=== PATIENT | female | born 1940 | race American Indian/Alaskan Native ===

== ENCOUNTER 2021-05-04 03:46 | Observation (INO) | payer MEDICARE ==
[2021-05-04] MEDS ORDERED: SODIUM CHLORIDE 0.9% 1000 ML 1,000 ML IV ONE (04:27)
--- NOTE | 2021-05-04 04:29 | Emergency Department Report ---
<RUTH LOREDO - Last Filed: 05/04/21 05:32> ED General Adult HPI - General Chief complaint: Syncope Stated complaint: PASSED OUT PUI?: No Time Seen by Provider: 05/04/21 04:15 Source: patient, EMS ( EMS documentation not available at time of chart dictation ), RN notes reviewed, old records reviewed Mode of arrival: Stretcher Limitations: Physical Limitation - History of Present Illness Initial comments: The patient is an 81-year-old gentleman. His primary care doctor is with [facility] Past medical history includes stroke, pulmonary nodule, near syncope, autonomic dysfunction, history of DVT, not currently on anticoagulation, as he reports that he was cleared to discontinue anticoagulation. Patient presents to the ER today with a complaint of loss of consciousness. Patient states that he was using the bathroom, perhaps urinating or defecating, he is not certain, he believes that he passed out. Prior to the event, denies headache, neck pain, chest pain, abdominal pain, shortness of breath. Denies hematemesis and bright red blood per rectum. Patient is not quite sure how he passed out. He states that he was using the commode, and "the next thing I knew, I was on the floor." Patient lives at home with family. He complains of left-sided hip pain. He denies neck pain. He does not believe he started any new medications recently, but he is not certain. -: Sudden Consistency: now resolved Improves with: none Worsens with: other (Associated with urination) - Related Data Home Medications Medication Instructions Recorded Confirmed Last Taken Ketotifen Fumarate [Allergy Eye 1 drop OU DAILY 01/17/18 01/17/18 01/17/18 Drops] Tamsulosin [Flomax] 0.4 mg PO QDAY 01/17/18 01/17/18 01/17/18 Previous Rx's Medication Instructions Recorded Last Taken Type Aspirin [Adult Low Dose Aspirin EC] 81 mg PO DAILY #30 tablet. 01/20/18 Unknown Rx Cholecalciferol (Vitamin D3) 2,000 unit PO QDAY #30 capsule 01/20/18 Unknown Rx [Vitamin D3] Clopidogrel Bisulfate [Plavix] 75 mg PO QDAY #30 tablet 01/20/18 Unknown Rx Cyanocobalamin (Vitamin B-12) 1,000 mcg PO DAILY #30 tablet 01/20/18 Unknown Rx [Vitamin B-12] Gabapentin 300 mg PO DAILY #30 capsule 01/20/18 Unknown Rx Loratadine (Nf) [Claritin (Nf)] 10 mg PO QDAY tablet 01/20/18 Unknown Rx Allergies Allergy/AdvReac Type Severity Reaction Status Date / Time No Known Allergies Allergy Unverified 01/17/18 18:35 ED Review of Systems Constitutional: malaise, weakness. denies: fever Eyes: denies: eye discharge Respiratory: denies: shortness of breath Cardiovascular: syncope. denies: chest pain Gastrointestinal: denies: abdominal pain Genitourinary: denies: dysuria Musculoskeletal: back pain, arthralgia, myalgia Neurological: weakness Hematological/Lymphatic: easy bleeding ED Past Medical Hx - Past Medical History Hx Hypertension: Yes Hx CVA: Yes Additional medical history: Pt is poor historian - Surgical History Hx Cholecystectomy: Yes Additional Surgical History: Pt is a poor historian: stomach ulcers - Social History Smoking Status: Unknown if ever smoked Substance Use Type: None - Medications Home Medications: Home Medications Medication Instructions Recorded Confirmed Last Taken Type Ketotifen Fumarate [Allergy Eye 1 drop OU DAILY 01/17/18 01/17/18 01/17/18 History Drops] Tamsulosin [Flomax] 0.4 mg PO QDAY 01/17/18 01/17/18 01/17/18 History Aspirin [Adult Low Dose Aspirin EC] 81 mg PO DAILY #30 tablet.dr 01/20/18 Unknown Rx Cholecalciferol (Vitamin D3) 2,000 unit PO QDAY #30 capsule 01/20/18 Unknown Rx [Vitamin D3] Clopidogrel Bisulfate [Plavix] 75 mg PO QDAY #30 tablet 01/20/18 Unknown Rx Cyanocobalamin (Vitamin B-12) 1,000 mcg PO DAILY #30 tablet 01/20/18 Unknown Rx [Vitamin B-12] Gabapentin 300 mg PO DAILY #30 capsule 01/20/18 Unknown Rx Loratadine (Nf) [Claritin (Nf)] 10 mg PO QDAY tablet 01/20/18 Unknown Rx ED Physical Exam - General Limitations: Physical Limitation General appearance: alert, in no apparent distress - Head Head exam: Present: atraumatic, normocephalic - Eye Eye exam: Present: normal appearance, PERRL, EOMI, other (Bilateral arcus senilis noted). Absent: nystagmus - ENT ENT exam: Present: normal exam, normal orophraynx, mucous membranes moist, no rmal external ear exam - Neck Neck exam: Present: normal inspection, full ROM. Absent: tenderness, meningismus - Respiratory Respiratory exam: Present: normal lung sounds bilaterally. Absent: respiratory distress, wheezes, rales, rhonchi, stridor, decreased breath sounds - Cardiovascular Cardiovascular Exam: Present: regular rate, normal rhythm, normal heart sounds. Absent: bradycardia, tachycardia, irregular rhythm, systolic murmur, diastolic murmur, rubs, gallop - GI/Abdominal GI/Abdominal exam: Present: soft. Absent: distended, tenderness, guarding, rebound, rigid, pulsatile mass - Rectal Rectal exam: Present: normal inspection, normal rectal tone, heme (-) stool, other (Chaperoned by Vivian Blanton, Marketing Analyst). Absent: heme (+) stool, black stool, bloody stool, fecal impaction - Extremities Exam Extremities exam: Present: normal inspection, full ROM, tenderness (There is left-sided hip tenderness. The pelvis is stable. There is pain with passive and active range of motion of the left hip and pelvis.), pedal edema (1+ edema), other (2+ pulses noted in the bilateral upper and lower extremities. Upper extremities have no longer any tenderness. Right lower extremities have normal bony tenderness. Left hip is point tender.). Absent: calf tenderness - Back Exam Back exam: Present: normal inspection, full ROM. Absent: tenderness, CVA tenderness (R), CVA tenderness (L), paraspinal tenderness, vertebral tenderness - Neurological Exam Neurological exam: Present: alert, oriented X3, other (No facial droop. Tongue midline. Extraocular movements intact bilaterally. Facial sensation intact to light touch in V1, V2, V3 distribution bilaterally. 5 and a 5 strength in 4 extremities. Sensation intact to light touch in 4 extremities.). Absent: motor sensory deficit - Psychiatric Psychiatric exam: Present: anxious - Skin Skin exam: Present: warm, dry, intact, normal color. Absent: rash ED Course - Reevaluation(s) Reevaluation #1: 05/04/21 05:11 Differential diagnosis, including but not limited to: Orthostasis, vagal event, structural cardiac disease, pulmonary embolism, pneumonia, urinary tract infection, anemia, electrolyte derangement Assessment and plan: 81-year-old gentleman, who during my history and physical, saturating at 93% on room air, blood pressure 96 mmHg systolic, with episode of syncope/loss of consciousness, in the context of urination or defecation. Patient repeat blood pressure is now 106 systolic. Administer supplemental oxygen, obtain appropriate laboratory studies, noncontrast CT scan of the brain, and CT angiogram of the chest, given history of syncope, hypoxia, hypotension, and history of DVT. Administer IV fluids, obtain x-ray of the pelvis and left hip. Treat the patient's pain with acetaminophen. Obtain urinalysis. Reassess after initial data points. Anticipate admission to the medical service. However, I suspect that this is most likely a vagal event, associated with micturition. Given advanced age and multiple medical issues and vascular risk factors, patient moderate risk for major adverse cardiac event as per heart score, and [facility] syncope rule. 05/04/21 05:32 Care will be transferred to the oncoming ER physician, to follow-up on CT scan of the brain, CT scan of the chest, x-ray of the hip and pelvis, and arrange admission to the medical service. ED Medical Decision Making - Lab Data Result diagrams: 05/04/21 04:34 05/04/21 04:34 Vital Signs 05/04/21 04:10 Temperature 97.9 F Pulse Rate 77 Respiratory 13 Rate Blood Pressure 105/63 [Left] O2 Sat by Pulse 92 Oximetry Lab Results 05/04/21 Range/Units 04:34 WBC 7.5 (4.5-11.0) K/mm3 RBC 3.99 (3.65-5.03) M/mm3 Hgb 11.1 (10.1-14.3) gm/dl Hct 34.0 (30.3-42.9) % MCV 85 (79-97) fl MCH 28 (28-32) pg MCHC 33 (30-34) % RDW 16.4 H (13.2-15.2) % Plt Count 291 (140-440) K/mm3 Lab Results 05/04/21 05/04/21 05/04/21 Range/Units 04:34 04:34 04:34 WBC 7.5 (4.5-11.0) K/mm3 RBC 3.99 (3.65-5.03) M/mm3 Hgb 11.1 (10.1-14.3) gm/dl Hct 34.0 (30.3-42.9) % MCV 85 (79-97) fl MCH 28 (28-32) pg MCHC 33 (30-34) % RDW 16.4 H (13.2-15.2) % Plt Count 291 (140-440) K/mm3 Lymph % (Auto) 8.5 L (13.4-35.0) % Burt % (Auto) 5.7 (0.0-7.3) % Eos % (Auto) 1.6 (0.0-4.3) % Baso % (Auto) 0.4 (0.0-1.8) % Lymph # (Auto) 0.6 L (1.2-5.4) K/mm3 Burt # (Auto) 0.4 (0.0-0.8) K/mm3 Eos # (Auto) 0.1 (0.0-0.4) K/mm3 Baso # (Auto) 0.0 (0.0-0.1) K/mm3 Seg Neutrophils % 83.8 H (40.0-70.0) % Seg Neutrophils # 6.1 (1.8-7.7) K/mm3 PT 14.4 (12.2-14.9) Sec. INR 1.01 (0.87-1.13) D-Dimer 876.04 H (0-234) ng/mlDDU Sodium 136 L (137-145) mmol/L Potassium 4.1 (3.6-5.0) mmol/L Chloride 100.6 (98-107) mmol/L Carbon Dioxide 23 (22-30) mmol/L Anion Gap 17 mmol/L BUN 10 (7-17) mg/dL Creatinine 1.0 (0.6-1.2) mg/dL Estimated GFR > 60 ml/min BUN/Creatinine Ratio 10 % Glucose 116 H (65-100) mg/dL Calcium 8.8 (8.4-10.2) mg/dL Magnesium 1.90 (1.7-2.3) mg/dL Total Bilirubin 0.30 (0.1-1.2) mg/dL AST 12 (5-40) units/L ALT 13 (7-56) units/L Alkaline Phosphatase 67 (35-129) units/L Total Creatine Kinase 51 (30-135) units/L Troponin T < 0.010 (0.00-0.029) ng/mL Total Protein 6.6 (6.3-8.2) g/dL Albumin 3.6 L (3.9-5) g/dL Albumin/Globulin Ratio 1.2 % - EKG Data -: EKG Interpreted by Mt EKG shows normal: sinus rhythm Rate: normal - EKG Data 05/04/21 05:10 EKG #1 is interpreted at 04: 31 Sinus rhythm, 76 bpm. Normal axis, normal intervals, minimal motion artifact, t his EKG is not a STEMI, the EKG is unchanged from prior EKG from 01/20/2018 - Radiology Data Radiology results: pending ED Disposition Clinical Impression: Syncope, Left hip pain Disposition: ADMITTED INPATIENT Is pt being admited?: Yes Does the pt Need Aspirin: No Condition: Good Instructions: Syncope (ED) Referrals: PRIMARY CARE, [Primary Care Provider] - 3-5 Days <VASU GARCIA - Last Filed: 05/04/21 09:47> ED Review of Systems ROS: Stated complaint: PASSED OUT Other details as noted in HPI ED Course Vital Signs 05/04/21 05/04/21 05/04/21 04:10 04:14 04:15 Temperature 97.9 F Pulse Rate 77 77 82 Respiratory 13 12 14 Rate Blood Pressure 96/63 Blood Pressure 105/63 [Left] O2 Sat by Pulse 92 93 92 Oximetry 05/04/21 05/04/21 05/04/21 04:30 04:45 05:00 Temperature Pulse Rate 76 79 75 Respiratory 12 13 14 Rate Blood Pressure 96/63 113/64 113/64 Blood Pressure [Left] O2 Sat by Pulse 94 92 Oximetry 05/04/21 05/04/21 05/04/21 05:15 06:23 06:30 Temperature Pulse Rate 76 76 60 Respiratory 12 12 13 Rate Blood Pressure 111/58 95/58 119/56 Blood Pressure [Left] O2 Sat by Pulse 97 96 95 Oximetry 05/04/21 05/04/21 06:45 07:15 Temperature Pulse Rate 65 70 Respiratory 16 15 Rate Blood Pressure 111/51 113/56 Blood Pressure [Left] O2 Sat by Pulse 96 96 Oximetry ED Medical Decision Making - Lab Data Result diagrams: 05/04/21 04:34 05/04/21 04:34 - Medical Decision Making Imaging studies reviewed. No acute fracture, acute intracranial abnormality, or pulmonary embolism/infiltrate identified based on imaging studies. Incidental findings noted. Case discussed with hospitalist Dr. Lawson for admission to Dr. Bennett service Critical care attestation.: If time is entered above; I have spent that time in minutes in the direct care of this critically ill patient, excluding procedure time. ED Disposition Time of Disposition: 09:46 (Dr. Bennett/hospitalist)
[2021-05-04] MEDS ORDERED: ACETAMINOPHEN 325 MG TAB PO ONE (05:03)
[2021-05-04 05:08] LABS: Hemoglobin 11.1 gm/dl (10.1-14.3); Mean Corpuscular HGB Conc 33 % (30-34); Mean Corpuscular Volume 85 fl (79-97); Platelet Count 291 K/mm3 (140-440); Red Blood Count 3.99 M/mm3 (3.65-5.03); Red Cell Distribution Width 16.4 % (13.2-15.2)
[2021-05-04 05:13] LABS: Alanine Aminotransferase 13 units/L (7-56); Albumin 3.6 g/dL (3.9-5); BUN/Creatinine Ratio 10; Blood Urea Nitrogen 10 mg/dL (7-17); Calcium 8.8 mg/dL (8.4-10.2); Hemolysis Index 2
[2021-05-04 05:17] LABS: Basophils % (Auto) 0.4 % (0.0-1.8); Eosinophils # (Auto) 0.1 K/mm3 (0.0-0.4); Eosinophils % (Auto) 1.6 % (0.0-4.3); Lymphocytes # (Auto) 0.6 K/mm3 (1.2-5.4); Lymphocytes % (Auto) 8.5 % (13.4-35.0); Monocytes # (Auto) 0.4 K/mm3 (0.0-0.8); Monocytes % (Auto) 5.7 % (0.0-7.3)
[2021-05-04 05:19] LABS: INR 1.01 (0.87-1.13)
--- NOTE | 2021-05-04 06:14 | Cat Scan Report ---
CT head without contrast INDICATION : Syncope. TECHNIQUE: Axial imaging performed from the skull apex through the skull base without the use of con trast. All CT scans at this location are performed using CT dose reduction for ALARA by means of aut omated exposure control. COMPARISON: 01/17/2018. FINDINGS: Parenchyma: Chronic changes of atrophy and small vessel ischemia. No mass, stroke or hemorrhage. Ventricles: Ventricles are normal in size and appear symmetric. Soft tissues: Soft tissues including the orbits appear normal. Bones: No acute osseous abnormality. Sinuses: Mucous retention cyst left maxillary sinus. IMPRESSION: Chronic changes of atrophy and small vessel ischemia. Signer Name: González Forman MD Signed: 05/04/2021 6:10 AM Workstation Name: [id number]
--- NOTE | 2021-05-04 06:22 | Cat Scan Report ---
CTA CHEST WITH CONTRAST INDICATION / CLINICAL INFORMATION: Syncope, hypoxia, history of DVT. TECHNIQUE: Axial CT images were obtained through the chest after injection of Omnipaque 350, 100 cc I V contrast. 3 plane MIP and/or 3D reconstructions were produced. All CT scans at this location are pe rformed using CT dose reduction for ALARA by means of automated exposure control. COMPARISON: None available. FINDINGS: PULMONARY ARTERIES: No pulmonary emboli. THORACIC AORTA: No significant abnormality. HEART: No significant abnormality. CORONARY ARTERY CALCIFICATION: Mild. MEDIASTINUM / DENISE: Prominent hilar nodes are present with the largest on the left measuring 1 cm in the greatest short axis axis dimension. The largest on the right measures 1.1 cm in the greatest shor t axis dimension. PLEURA: No pleural effusion. No pneumothorax. LUNGS: Mild/moderate emphysema. 6 mm noncalcified nodule right middle lobe laterally (series 2, image 87). A small perifissural nodule is also seen at the right major fissure. Calcified granuloma right upper lobe. ADDITIONAL FINDINGS: None. UPPER ABDOMEN: No acute findings. SKELETAL STRUCTURES: No significant osseous abnormality. IMPRESSION: 1. No CT evidence for pulmonary embolism. 2. Negative for pneumonia. 3. Mild hilar adenopathy. 4. Incidental 6 mm pulmonary nodule. 5. Mild/moderate emphysema. INCIDENTAL PULMONARY NODULE RECOMMENDATION RECOMMENDATION: Solid Nodule size 6-8 mm -- Single - Low Risk Patient: CT at 6-12 months, then consider CT at 18-24 months - High Risk Patient: CT at 6-12 months, then CT at 18-24 months Note These recommendations do not apply to lung cancer screening, patients with immunosuppression, o r patients with known primary cancer. Note Newly detected indeterminate nodule in persons 35 years of age or older. Persons under the age of 35 should not receive follow-up unless there is a known primary cancer. Note Perifissural Nodule is a fissure-attached/subpleural, homogeneous, solid nodule that has smooth margins and an oval, lentiform, or triangular shape. They represent about 20% of nodules detected in lung cancer screening, are invariably benign, and do not require follow-up. Nodules 10 mm or larger (or those with suspicious features) will continue to be managed based on the size criteria. Low Risk Patient -- minimal or absent history of smoking and of other known risk factors. High Risk Patient -- history of smoking or of other known risk factors. Nodule dimensions are average of long and short axes, rounded to the nearest millimeter. Based on 2017 Fleischner Society Guidelines found in Radiology 2017 284:228-243. https://doi.org/10.1148/radiol.7794105863 https://www.ncbi.nlm.nih.gov/pmc/articles/XGA5007813/ Signer Name: González Forman MD Signed: 05/04/2021 6:18 AM Workstation Name: [id number]
--- NOTE | 2021-05-04 07:19 | XRay Report ---
LEFT HIP 3 VIEWS INDICATION / CLINICAL INFORMATION: left hip and leg pain COMPARISON: None available. FINDINGS: BONES / JOINT(S): No acute fracture or subluxation. All symmetric DJD at the hips. SOFT TISSUES: Atherosclerotic vascular calcification. ADDITIONAL FINDINGS: None. Signer Name: González Forman MD Signed: 05/04/2021 7:15 AM Workstation Name: [id number]
--- NOTE | 2021-05-04 07:19 | XRay Report ---
CHEST 1 VIEW 05/04/2021 6:05 AM INDICATION / CLINICAL INFORMATION: Syncope. COMPARISON: None available. FINDINGS: SUPPORT DEVICES: None. HEART / MEDIASTINUM: No significant abnormality. LUNGS / PLEURA: No significant pulmonary or pleural abnormality. No pneumothorax. ADDITIONAL FINDINGS: No significant additional findings. IMPRESSION: No acute abnormality. Signer Name: González Forman MD Signed: 05/04/2021 7:15 AM Workstation Name: [id number]
--- NOTE | 2021-05-04 07:33 | XRay Report ---
Pelvis, single view history: Left hip and leg pain COMPARISON: None FINDINGS: No acute fracture. No hip dislocation. There is osteoarthritis of the hips. SI joints and p ubic symphysis are intact. Lower lumbar spondylosis is partially imaged. IMPRESSION: No acute process. Signer Name: Nick Berrios MD Signed: 05/04/2021 7:29 AM Workstation Name: [id number]
--- NOTE | 2021-05-04 14:04 | History and Physical Report ---
History of Present Illness Date of examination: 05/04/21 Date of admission: 05/04/21 09:47 History of present illness: The patient is an 81-year-old gentleman. His primary care doctor is with [facility] Past medical history includes stroke, pulmonary nodule, near syncope, autonomic dysfunction, history of DVT, not currently on anticoagulation, as he reports that he was cleared to discontinue anticoagulation. Patient presents to the ER today with a complaint of loss of consciousness. Pat elena states that he was using the bathroom, perhaps urinating or defecating, he is not certain, he believes that he passed out. Prior to the event, denies headache, neck pain, chest pain, abdominal pain, shortness of breath. Denies hematemesis and bright red blood per rectum. Patient is not quite sure how he passed out. He states that he was using the commode, and "the next thing I knew, I was on the floor." Patient lives at home with family. He complains of left-sided hip pain. He denies neck pain. He does not believe he started any new medications recently, but he is not certain. Medications and Allergies Allergies Allergy/AdvReac Type Severity Reaction Status Date / Time No Known Allergies Allergy Verified 05/05/21 10:35 Home Medications Medication Instructions Recorded Confirmed Last Taken Type Tamsulosin [Flomax] 0.4 mg PO QDAY 01/17/18 05/05/21 05/03/21 History Aspirin [Adult Low Dose Aspirin EC] 81 mg PO DAILY #30 tablet. 01/20/18 05/05/21 05/03/21 Rx Clopidogrel Bisulfate [Plavix] 75 mg PO QDAY #30 tablet 01/20/18 05/05/21 05/03/21 Rx Cyanocobalamin (Vitamin B-12) 1,000 mcg PO DAILY #30 tablet 01/20/18 05/05/21 05/03/21 Rx [Vitamin B-12] Atorvastatin [Lipitor Tab] 80 mg PO QHS 05/05/21 05/05/21 05/03/21 History Cholecalciferol (Vitamin D3) 4,000 unit PO QDAY 05/05/21 05/05/21 05/03/21 History [Vitamin D3 2,000 UNIT CAP] Dextran 70/Hypromellose 1 drop OU PRN PRN 05/05/21 05/05/21 Unknown History [Artificial Tears] Gabapentin 600 mg PO QAM 05/05/21 05/05/21 05/03/21 History traMADoL [Ultram] 50 mg PO PRN PRN 05/05/21 05/05/21 05/03/21 History Exam - Constitutional Vitals: Temp Pulse Resp BP Pulse Ox 97.9 F 77 15 107/62 94 05/04/21 04:10 05/04/21 13:00 05/04/21 13:00 05/04/21 13:00 05/04/21 13:00 HEART Score - HEART Score Troponin: Troponin T < 0.010 ng/mL (0.00-0.029) 05/04/21 04:34 Results - Labs CBC & Chem 7: 05/04/21 04:34 05/04/21 04:34 Labs: Abnormal lab results 05/04/21 05/04/21 05/04/21 Range/Units 04:34 04:34 04:34 RDW 16.4 H (13.2-15.2) % Lymph % (Auto) 8.5 L (13.4-35.0) % Lymph # (Auto) 0.6 L (1.2-5.4) K/mm3 Seg Neutrophils % 83.8 H (40.0-70.0) % D-Dimer 876.04 H (0-234) ng/mlDDU Sodium 136 L (137-145) mmol/L Glucose 116 H (65-100) mg/dL Albumin 3.6 L (3.9-5) g/dL Assessment and Plan --Syncope and collapse --h/o CVA --h/o DVT not on AC --HTN
[2021-05-04] MEDS: ASPIRIN EC 81 MG TAB PO SCH (15:32)
[2021-05-04] MEDS: traMADol 50 MG TAB PO PRN (15:32)
[2021-05-04] MEDS: ENOXAPARIN 40 MG/0.4 ML INJ SUB-Q SCH (23:00)
[2021-05-05] MEDS: traMADol 50 MG TAB PO PRN (08:12)
[2021-05-05] MEDS: TAMSULOSIN 0.4 MG CAP PO SCH (09:14)
[2021-05-05] MEDS: CETIRIZINE 10 MG TAB PO SCH (09:14)
[2021-05-05] MEDS: CHOLECALCIFEROL (VIT D3) 1000 UNIT (25 mcg) TAB PO SCH (09:14)
[2021-05-05] MEDS: ASPIRIN EC 81 MG TAB PO SCH (09:14)
[2021-05-05] MEDS: CLOPIDOGREL 75 MG TAB PO SCH (09:14)
[2021-05-05] MEDS: CYANOCOBALAMIN (VIT B-12) 1000 MCG TAB PO SCH (09:14)
[2021-05-05] MEDS: GABAPENTIN 300 MG CAP PO SCH (09:15)
[2021-05-05 09:40] LABS: Bilirubin,Urine NEG (Negative); Blood,Urine SM (Negative); Color,Urine Yellow (Yellow); Protein,Urine <15 mg/dL mg/dL (Negative); Urobilinogen,Urine < 2.0 mg/dL (<2.0)
[2021-05-05] MEDS ORDERED: CHOLECALCIFEROL 2000 UNIT PO SCH (10:00)
[2021-05-05] MEDS ORDERED: NON-FORMULARY EACH (Loratadine (Nf) 10 MG Tablet) PO SCH (10:00)
[2021-05-05] MEDS ORDERED: [UNRECOGNIZED DRUG - REMARK] OU SCH (10:00)
--- NOTE | 2021-05-05 13:52 | Discharge Summary ---
Providers - Providers Date of Admission: 05/04/21 09:47 Date of discharge: 05/05/21 Attending physician: LUKASZ ZIMMERMAN 05/05/21 07:27 Physical Therapy Evaluation and Treat [CONS] Urgent Comment: Reason For Exam: debility 05/05/21 07:28 Occupational Therapy Evaluate and Treat [CONS] Urgent Comment: Reason For Exam: debility 05/05/21 09:19 Consult to Physician [CONS] Routine Comment: Consulting Provider: ERNST DELUNA Physician Instructions: Reason For Exam: syncope Primary care physician: COMPUTATOR Hospitalization Condition: Good Exam - Constitutional Vitals: Temp Pulse Resp BP Pulse Ox 97.9 F 77 22 102/52 96 05/04/21 04:10 05/05/21 07:52 05/05/21 07:50 05/05/21 05:00 05/05/21 10:28 Plan Activity: fall precautions Weight Bearing Status: Non-Weight Bearing Diet: low fat, low salt Durable Medical Equipment Needed Upon Discharge: Walker-Rolling Follow up with: GLENDY PRINCE MD [Primary Care Provider] - 3-5 Days ERNST DELUNA MD [Staff Physician] - 7 Days
--- NOTE | 2021-05-05 17:50 | Consultation ---
History of Present Illness Consult date: 05/05/21 Consult reason: syncope History of present illness: Patient is an 81-year-old man with a history of hypertension, no prior cardiac h istory he presented to the hospital following a syncopal episode which occurred in the middle of the night. He states that he had gotten up to use the bathroom and on his way to the bathroom felt lightheaded, diaphoretic and suffered a brief syncope. There was no chest pain, no palpitations, no shortness of breath, and no seizure activity was reported. Patient's reports that a similar episode 5 years ago associated with a bowel movement, did not result in landry syncope, and had not recurred until the current event. Work-up in the hospital so far, EKG is normal sinus rhythm, normal ECG. Chest x-ray was normal-sized cardiac silhouette and clear lungs. A CTA of the chest was negative for pulmonary embolism. 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 Today, he underwent an echocardiogram that showed well-preserved left ventricular systolic function, ejection fraction 55%. Patient is currently in the telemetry unit, comfortable in no acute distress, looks and feels well with no cardiac complaints. Past History Past Medical History: hypertension Medications and Allergies Allergies Allergy/AdvReac Type Severity Reaction Status Date / Time No Known Allergies Allergy Verified 05/05/21 10:35 Home Medications Medication Instructions Recorded Confirmed Last Taken Type Tamsulosin [Flomax] 0.4 mg PO QDAY 01/17/18 05/05/21 05/03/21 History Aspirin [Adult Low Dose Aspirin EC] 81 mg PO DAILY #30 tablet. 01/20/18 05/05/21 05/03/21 Rx Clopidogrel Bisulfate [Plavix] 75 mg PO QDAY #30 tablet 01/20/18 05/05/21 05/03/21 Rx Cyanocobalamin (Vitamin B-12) 1,000 mcg PO DAILY #30 tablet 01/20/18 05/05/21 05/03/21 Rx [Vitamin B-12] Atorvastatin [Lipitor] 80 mg PO QHS 05/05/21 05/05/21 05/03/21 History Cholecalciferol (Vitamin D3) 4,000 unit PO QDAY 05/05/21 05/05/21 05/03/21 History [Vitamin D3 2,000 UNIT CAP] Dextran 70/Hypromellose 1 drop OU PRN PRN 05/05/21 05/05/21 Unknown History [Artificial Tears] Gabapentin 600 mg PO QAM 05/05/21 05/05/21 05/03/21 History traMADoL [Ultram 50 MG tab] 50 mg PO PRN PRN 05/05/21 05/05/21 05/03/21 History Active Meds: Active Medications Aspirin (Aspirin Ec 81 Mg Tab) 81 mg PO DAILY [facility] Last Admin: 05/05/21 09:14 Dose: 81 mg Documented by: Cetirizine HCl (Cetirizine 10 Mg Tab) 10 mg PO DAILY [facility] Last Admin: 05/05/21 09:14 Dose: 10 mg Documented by: Cholecalciferol (Cholecalciferol (Vit D3) 1000 Unit (25 Mcg) Tab) 2,000 unit PO QDAY [facility] Last Admin: 05/05/21 09:14 Dose: 2,000 unit Documented by: Clopidogrel Bisulfate (Clopidogrel 75 Mg Tab) 75 mg PO QDAY [facility] Last Admin: 05/05/21 09:14 Dose: 75 mg Documented by: Cyanocobalamin (Cyanocobalamin (Vit B-12) 1000 Mcg Tab) 1,000 mcg PO DAILY [facility] Last Admin: 05/05/21 09:14 Dose: 1,000 mcg Documented by: Enoxaparin Sodium (Enoxaparin 40 Mg/0.4 Ml Inj) 40 mg SUB-Q QDAY@2200 LISETH; Protocol Last Admin: 05/04/21 23:00 Dose: Not Given Documented by: Gabapentin (Gabapentin 300 Mg Cap) 300 mg PO DAILY [facility] Last Admin: 05/05/21 09:15 Dose: 300 mg Documented by: Tamsulosin HCl (Tamsulosin 0.4 Mg Cap) 0.4 mg PO QDAY [facility] Last Admin: 05/05/21 09:14 Dose: 0.4 mg Documented by: Tramadol HCl (Tramadol 50 Mg Tab) 50 mg PO Q8H PRN PRN Reason: Pain, Moderate (4-6) Last Admin: 05/05/21 08:12 Dose: 50 mg Documented by: Review of Systems Cardiovascular: syncope, lightheadedness, no chest pain, no orthopnea, no palpitations, no rapid/irregular heart beat, no edema, no shortness of breath Physical Examination Vital Signs Temp Pulse Resp BP Pulse Ox 97.9 F 77 13 105/63 92 05/04/21 04:10 05/04/21 04:10 05/04/21 04:10 05/04/21 04:10 05/04/21 04:10 General appearance: no acute distress HEENT: Positive: PERRL Neck: Positive: neck supple Cardiac: Positive: Reg Rate and Rhythm Lungs: Positive: clear to auscultation Neuro: Positive: Grossly Intact Abdomen: Positive: Soft Female genitourinary: deferred Skin: Positive: Clear Extremities: Absent: edema Results 05/04/21 04:34 05/04/21 04:34 EKG interpretations - Telemetry EKG Rhythm: Sinus Rhythm Assessment and Plan - Patient Problems (1) Syncope Current Visit: Yes Status: Acute Plan to address problem: Patient's description of his brief syncope appears to suggest a vasovagal syncope. Extensive work-up so far as outlined for neurogenic and cardiogenic syncope have been negative. We will order a predischarge Lexiscan thallium stress test for tomorrow morning.
[2021-05-05] MEDS: ENOXAPARIN 40 MG/0.4 ML INJ SUB-Q SCH (21:29)
--- NOTE | 2021-05-06 02:58 | Progress Note ---
Assessment and Plan Patient is an 81-year-old man with a history of hypertension, no prior cardiac history he presented to the hospital following a syncopal episode which occurred in the middle of the night. He states that he had gotten up to use the bathroom and on his way to the bathroom felt lightheaded, diaphoretic and suffered a brief syncope. Work-up in the hospital so far, EKG is normal , Chest x-ray was normal-sized cardiac silhouette and clear lungs. A CTA of the chest was negative for pulmonary embolism. 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 2d echo showed ejection fraction 55%. A/P --Syncope and collapse, likely vasovagal pending stress test --h/o CVA, continue aspirin, plavix and lipitor --h/o DVT not on AC --HTN, BP stable --HLD, on statin --BPH, on flomax --Elevated D-dimer, CTA negative Continue to monitor on telemetry, ordered for orthostatic vitals Follow PT recommendation, cardiology recommended stress test in the morning Continue home meds with aspirin Plavix and statin DVT prophylaxis with SCD and Lovenox If orthostatic vitals and stress test result is negative patient should be discharged home tomorrow with outpatient PT OT Subjective Date of service: 05/05/21 Interval history: Patient seen and examined. Medical records and medication list reviewed. No acute event overnight noted by the RN. Patient denies any chest pain or difficulty breathing. Patient is tolerating diet. Discussed plan of care at bedside with patient. Objective - Exam Narrative Exam: GENERAL: well-developed and well-nourished elderly -Dutch male lying on bed appeared to be in no discomfort. HEENT: Normocephalic. Atraumatic. No conjunctival congestion or icterus. Patient has moist mucous membranes. NECK: Supple. Trachea midline. CHEST/LUNGS: Clear to auscultated bilaterally, breathing nonlabored. No wheezes crackles or rhonchi. HEART/CARDIOVASCULAR: Regular in rate and rhythm. S1 and S2 positive. ABDOMEN: Abdomen is soft, nontender. Patient has normal bowel sounds. SKIN: There is no rash. Warm and dry. NEURO: No focal motor deficit. Follows command. MUSCULOSKELETAL: No joint effusion or tenderness. EXTRIMITY: No edema, no cyanosis or clubbing. PSYCH: Cooperative. - Constitutional Vitals: Vital Signs - 12hr 05/05/21 19:00 Respiratory 22 Rate O2 Sat by Pulse 96 Oximetry - Labs CBC & Chem 7: 05/04/21 04:34 05/04/21 04:34 HEART Score - HEART Score Troponin: Troponin T < 0.010 ng/mL (0.00-0.029) 05/04/21 04:34
[2021-05-06] MEDS ORDERED: SODIUM CHLORIDE 0.9% 1000 ML 1,000 ML IV SCH (03:15)
[2021-05-06 06:34] LABS: BUN/Creatinine Ratio 13; Blood Urea Nitrogen 10 mg/dL (7-17); Calcium 8.5 mg/dL (8.4-10.2); Hemolysis Index 5
[2021-05-06] MEDS ORDERED: REGADENOSON 0.4 MG/5 ML INJ IV ONE (08:56)
--- NOTE | 2021-05-06 10:24 | Event Note ---
Date: 05/06/21 Patient completed a Lexiscan thallium stress test, no complications. Myocardial perfusion test results are pending.
--- NOTE | 2021-05-06 11:25 | Electrocardiograph Report ---
[facility] Test Date: 2021-05-04 Test Time: 04:31:37 Pat Name: SINDHU MELO Department: Room: A456 Gender: F Project Surveyor: INGA : 1940 Requested By: RUTH LOREDO Order Number: [id number] Reading MD: Jenna Rowan Measurements Intervals [place] Rate: 76 P: 67 NH: 180 QRS: 49 QRSD: 94 T: 61 QT: 390 QTc: 438 Interpretive Statements Sinus rhythm Normal ECG No previous ECG available for comparison Electronically Signed On 05-06-2021 11:25:26 EST by Jenna Rowan
--- NOTE | 2021-05-06 11:41 | Nuclear Medicine Report ---
APPROVED REPORT Exam: Nuclear Stress Test Indication: Chest pain [facility] #: [facility] Ht: 5 ft 9 in Wt: 185 lbs BSA: 2.00 m2 BMI: 27.31 Rhythm: NSR Stress Test Details Stress Test: Pharmacologic stress testing performed using 0.4 mg of regadenoson per 5 mL given IV over 10 seconds. Reason for pharmacologic stress test: physical limitation. HR Resting HR: 80 bpm Max HR Achieved: 113 bpm Max Heart Rate (APMHR): 140 bpm Target HR (85% APMHR): 119 bpm % of APMHR: 80 Recovery HR: 94 bpm HR response to stress: Normal HR response to stress BP Resting BP: 107/60 mmHg Max BP: 123/72 mmHg Recovery BP: 98/57 mmHg BP response to stress: Normal blood pressure response to stress. ECG Resting ECG: Sinus Rhythm Stress ECG: Sinus Tachycardia ST Change: None Arrhythmia: None Recovery ECG: Sinus Rhythm Recovery ST Change: None Recovery Arrhythmia: Occasional VPC Clinical Reason for Termination: Completed protocol Stress Symptoms: None Stress ECG Conclusion No chest pain, no ST changes with pharmacologic stress. Myocardial perfusion images are pending. NM EXAM: Myocardial Perfusion REST/STRESS Imaging Protocol: Rest Tc-99m/Stress Tc-99m 1 day Resting Data Rest SPECT myocardial perfusion imaging was performed in supine position 45 minutes following the intravenous injection of 10 mCi of Tc-99m Myoview. Time of rest injection: 0730 Pharmacologic Stress Pharmacologic stress test was performed by injecting Regadenoson 0.4 mg IV push followed by the intravenous injection of 28 mCi of Tc-99m Myoview. Time of stress injection: 1000 Gated Stress SPECT was performed 30 minutes after stress injection. The images were gated to evaluate regional wall motion and calculate left ventricular ejection fraction. Study Data TID = 1.07. Perfusion Wall Motion Normal left ventricular systolic function, ejection fraction 66%. Nuclear Conclusion ECG Findings: negative for ischemia Clinical Findings: negative for ischemia Nuclear Findings: negative for ischemia Left Ventricular Function: normal Risk Study: low Normal myocardial perfusion on both rest and stress images, normal left ventricular systolic function, ejection fraction 66%. Normal study. Conclusion No chest pain, no ST changes with pharmacologic stress. Myocardial perfusion images are pending.
[2021-05-06] MEDS: CHOLECALCIFEROL (VIT D3) 1000 UNIT (25 mcg) TAB PO SCH (12:10)
[2021-05-06] MEDS: traMADol 50 MG TAB PO PRN (12:10)
[2021-05-06] MEDS: CETIRIZINE 10 MG TAB PO SCH (12:13)
[2021-05-06] MEDS: CYANOCOBALAMIN (VIT B-12) 1000 MCG TAB PO SCH (12:13)
[2021-05-06] MEDS: TAMSULOSIN 0.4 MG CAP PO SCH (12:13)
[2021-05-06] MEDS: GABAPENTIN 300 MG CAP PO SCH (12:13)
[2021-05-06] MEDS: ASPIRIN EC 81 MG TAB PO SCH (12:13)
[2021-05-06] MEDS: CLOPIDOGREL 75 MG TAB PO SCH (12:13)
--- NOTE | 2021-05-06 12:52 | Event Note ---
Date: 05/06/21 Patient's Lexiscan thallium stress test was normal. We have completed inpatient cardiac work-up for syncope. Patient is stable for cardiac discharge and outpatient follow-up.
[2021-05-06 15:44] VITALS: BP 122/68
--- NOTE | 2021-05-06 15:47 | Progress Note ---
Assessment and Plan Assessment and plan: 81-year-old man with a history of hypertension, no prior cardiac history he presented to the hospital following a syncopal episode which occurred in the middle of the night. He states that he had gotten up to use the bathroom and on his way to the bathroom felt lightheaded, diaphoretic and suffered a brief syncope. Work-up in the hospital so far, EKG is normal , Chest x-ray was normal-sized cardiac silhouette and clear lungs. A CTA of the chest was negative for pulmonary embolism. On contract processor, no significant dysrhythmias have been reported. 2d echo showed ejection fraction 55%. A/P --Syncope and collapse, likely vasovagal pending stress test --h/o CVA, continue aspirin, plavix and lipitor --h/o DVT not on AC --HTN, BP stable --HLD, on statin --BPH, on flomax --Elevated D-dimer, CTA negative --Echocardiogram: Mild LVH, EF 55%, mild pulmonary hypertension 47 mm, mild to moderate TR, otherwise unremarkable. --Nuclear stress test normal Patient was advised to get up and walk slowly especially after waking from sleep. He will see his PCP in 1 week and reassess the need for Flomax which could cause are accentuated orthostasis. Patient is discharged to home in stable/asymptomatic at this. His is present at bedside. History Interval history: Patient is currently asymptomatic. is present at bedside. Patient denies chest pains, lightheadedness, dizziness or dyspnea. patient did undergo ca rdiac stress test today which was negative and cardiology cleared for discharge today. Hospitalist Physical - Constitutional Vitals: Temp Pulse Resp BP Pulse Ox 98.3 F 86 20 122/68 92 05/06/21 11:08 05/06/21 11:08 05/06/21 11:08 05/06/21 11:08 05/06/21 11:08 General appearance: Present: no acute distress - EENT Eyes: Present: PERRL - Neck Neck: Present: supple - Respiratory Respiratory effort: normal Respiratory: bilateral: CTA - Cardiovascular Rhythm: regular - Extremities Extremities: No edema - Abdominal General gastrointestinal: soft, non-tender, normal bowel sounds - Integumentary Integumentary: Absent: rash - Psychiatric Psychiatric: appropriate mood/affect - Neurologic Neurologic: no focal deficits, moves all extremities HEART Score - HEART Score Troponin: Troponin T < 0.010 ng/mL (0.00-0.029) 05/04/21 04:34 Results - Labs CBC & Chem 7: 05/04/21 04:34 05/06/21 05:43 Labs: Laboratory Last Values WBC 7.5 K/mm3 (4.5-11.0) 05/04/21 04:34 RBC 3.99 M/mm3 (3.65-5.03) 05/04/21 04:34 Hgb 11.1 gm/dl (10.1-14.3) 05/04/21 04:34 Hct 34.0 % (30.3-42.9) 05/04/21 04:34 MCV 85 fl (79-97) 05/04/21 04:34 MCH 28 pg (28-32) 05/04/21 04:34 MCHC 33 % (30-34) 05/04/21 04:34 RDW 16.4 % (13.2-15.2) H 05/04/21 04:34 Plt Count 291 K/mm3 (140-440) 05/04/21 04:34 Lymph % (Auto) 8.5 % (13.4-35.0) L 05/04/21 04:34 [place] % (Auto) 5.7 % (0.0-7.3) 05/04/21 04:34 Eos % (Auto) 1.6 % (0.0-4.3) 05/04/21 04:34 Baso % (Auto) 0.4 % (0.0-1.8) 05/04/21 04:34 Lymph # (Auto) 0.6 K/mm3 (1.2-5.4) L 05/04/21 04:34 [place] # (Auto) 0.4 K/mm3 (0.0-0.8) 05/04/21 04:34 Eos # (Auto) 0.1 K/mm3 (0.0-0.4) 05/04/21 04:34 Baso # (Auto) 0.0 K/mm3 (0.0-0.1) 05/04/21 04:34 Seg Neutrophils % 83.8 % (40.0-70.0) H 05/04/21 04:34 Seg Neutrophils # 6.1 K/mm3 (1.8-7.7) 05/04/21 04:34 PT 14.4 Sec. (12.2-14.9) 05/04/21 04:34 INR 1.01 (0.87-1.13) 05/04/21 04:34 D-Dimer 876.04 ng/mlDDU (0-234) H 05/04/21 04:34 Sodium 136 mmol/L (137-145) L 05/06/21 05:43 Potassium 4.0 mmol/L (3.6-5.0) 05/06/21 05:43 Chloride 101.1 mmol/L (98-107) 05/06/21 05:43 Carbon Dioxide 22 mmol/L (22-30) 05/06/21 05:43 Anion Gap 17 mmol/L 05/06/21 05:43 BUN 10 mg/dL (7-17) 05/06/21 05:43 Creatinine 0.8 mg/dL (0.6-1.2) 05/06/21 05:43 Estimated GFR > 60 ml/min 05/06/21 05:43 BUN/Creatinine Ratio 13 % 05/06/21 05:43 Glucose 103 mg/dL (65-100) H 05/06/21 05:43 Calcium 8.5 mg/dL (8.4-10.2) 05/06/21 05:43 Magnesium 1.90 mg/dL (1.7-2.3) 05/04/21 04:34 Total Bilirubin 0.30 mg/dL (0.1-1.2) 05/04/21 04:34 AST 12 units/L (5-40) 05/04/21 04:34 ALT 13 units/L (7-56) 05/04/21 04:34 Alkaline Phosphatase 67 units/L (35-129) 05/04/21 04:34 Total Creatine Kinase 51 units/L (30-135) 05/04/21 04:34 Troponin T < 0.010 ng/mL (0.00-0.029) 05/04/21 04:34 Total Protein 6.6 g/dL (6.3-8.2) 05/04/21 04:34 Albumin 3.6 g/dL (3.9-5) L 05/04/21 04:34 Albumin/Globulin Ratio 1.2 % 05/04/21 04:34 Urine Color Yellow (Yellow) 05/05/21 09:19 Urine Turbidity Clear (Clear) 05/05/21 09:19 Urine pH 6.0 (5.0-7.0) 05/05/21 09:19 Ur Specific [place] 1.011 (1.003-1.030) 05/05/21 09:19 Urine Protein <15 mg/dl mg/dL (Negative) 05/05/21 09:19 Urine Glucose (UA) Neg mg/dL (Negative) 05/05/21 09:19 Urine Ketones Neg mg/dL (Negative) 05/05/21 09:19 Urine Blood Sm (Negative) 05/05/21 09:19 Urine Nitrite Neg (Negative) 05/05/21 09:19 Urine Bilirubin Neg (Negative) 05/05/21 09:19 Urine Urobilinogen < 2.0 mg/dL (<2.0) 05/05/21 09:19 Ur Leukocyte Esterase Neg (Negative) 05/05/21 09:19 Urine WBC (Auto) 1.0 /HPF (0.0-6.0) 05/05/21 09:19 Urine RBC (Auto) 3.0 /HPF (0.0-6.0) 05/05/21 09:19 U Epithel Cells (Auto) < 1.0 /HPF (0-13.0) 05/05/21 09:19 [place]/IV: Voiding Method Urinal Active Medications - Current Medications Current Medications: Generic Name Dose Route Start Last Admin Trade Name Isaiq PRN Reason Stop Dose Admin Aspirin 81 mg 05/04/21 15:00 05/06/21 12:13 Aspirin Ec 81 Mg Tab PO 81 mg DAILY LISETH Administration Cetirizine HCl 10 mg 05/05/21 10:00 05/06/21 12:13 Cetirizine 10 Mg Tab PO 10 mg DAILY LISETH Administration Cholecalciferol 2,000 unit 05/05/21 10:00 05/06/21 12:10 Cholecalciferol (Vit D3) 1000 Unit (25 Mcg) Tab PO 2,000 unit QDAY LISETH Administration Clopidogrel Bisulfate 75 mg 05/05/21 10:00 05/06/21 12:13 Clopidogrel 75 Mg Tab PO 75 mg QDAY LISETH Administration Cyanocobalamin 1,000 mcg 05/05/21 10:00 05/06/21 12:13 Cyanocobalamin (Vit B-12) 1000 Mcg Tab PO 1,000 mcg DAILY LISETH Administration Enoxaparin Sodium 40 mg 05/04/21 22:00 05/05/21 21:29 Enoxaparin 40 Mg/0.4 Ml Inj SUB-Q 40 mg QDAY@2200 LISETH Administration Protocol Gabapentin 300 mg 05/05/21 10:00 05/06/21 12:13 Gabapentin 300 Mg Cap PO 300 mg DAILY LISETH Administration Sodium Chloride 1,000 mls @ 100 mls/hr 05/06/21 03:15 Nacl 0.9% 1000 Ml IV DIRECT LISETH Tamsulosin HCl 0.4 mg 05/05/21 10:00 05/06/21 12:13 Tamsulosin 0.4 Mg Cap PO 0.4 mg QDAY LISETH Administration Tramadol HCl 50 mg 05/04/21 15:01 05/06/21 12:10 Tramadol 50 Mg Tab PO 50 mg Q8H PRN Administration Pain, Moderate (4-6)
== END 2021-05-06 16:34 | disposition home or self-care (01) ==
LOC: ED 03:46 → 4A 09:47
PROVIDERS: ADMIT Internal Medicine; ATTEND Internal Medicine
DX: R55 Syncope and collapse (principal); I10 Essential (primary) hypertension; M25.552 Pain in left hip; E78.5 Hyperlipidemia, unspecified; R77.8 Other specified abnormalities of plasma proteins; Z79.82 Long term (current) use of aspirin; Z79.01 Long term (current) use of anticoagulants; Z86.718 Personal history of other venous thrombosis and embolism; Z86.73 Personal history of transient ischemic attack (TIA), and cerebral infarction without residual deficits
CPT/HCPCS: 36415; 70450; 71045; 71275; 72170; 73502; 78452; 80048; 80053; 81001; 82550; 83735; 84484; 85025; 85379; 85610; 93005; 93017; 93306; 96360; 96372; 97110; 97116; 97161; 97165; 97535; 99285; A9502; G0378; J1650; J2785; J7030; Q9967; Q0162